=== PATIENT | male | born 1990 | race Caucasian/White ===

== ENCOUNTER 2019-06-04 14:03 | Emergency (ER) | payer SELFPAY ==
[2019-06-04 14:06] VITALS: BP 151/87; RESP 14; TEMP 36.8; O2SAT 98
--- NOTE | 2019-06-04 14:21 | ED.GENADUL_ITS ---
Discharge Plan Disposition Patient Disposition: HOME Condition: Stable Discharge Details Chief Complaint: DentalOral Clinical Impression: Dental abscess Primary Care Provider: Unknown,Unknown ED Provider: Ana Luisa Lewis Home Meds and New Rx's Prescriptions: New penicillin V potassium 500 mg tablet 500 mg PO BID 7 Days Qty: 14 RF: 0 No Action methadone 10 mg Tablet 8 mg DAILY RF: 0 Lantus U-100 Insulin 100 unit/mL Solution 50 unit SUBCUT DAILY RF: 0 insulin lispro [Humalog U-100 Insulin] 100 unit/mL Solution RF: 0 Discharge Instructions Instructions: Dental Abscess (ED) Additional Instructions: Gargle and rinse mouth after every meal with warm salt water or mouthwash. Practice good dental hygiene. You need to follow-up with a dentist within 3 to 5 days if possible. Take medications as directed. Insert ibuprofen. Insert discharge Medical Decision Making 28-year-old male presents with left-sided lower jaw swelling and dental pain. Patient states he noticed left lower molar tenderness approximately 1 week ago and woke up this morning with jaw swelling. He does have a history of dental abscess and has taken antibiotics in the past which has improved symptoms. He denies any trouble swallowing speaking in full sentences, he denies any fever or body aches. Discussed I&D of dental abscess with patient, patient refused at this time. He reports that he only wants antibiotics. Discussed risks and benefits of not doing a incision and drainage. Verbalizes understanding. Strict return instructions given. Prescription given for penicillin 500 mg twice daily x7 days and patient was given a list of dental resources in the community to follow-up with. HPI General Mode of arrival: ambulatory . Date/Time Provider Initiated Documentation: 06/04/19 14:05 . Limitations to Documentation: no limitations . Information obtained by: patient . HPI Narrative: 28-year-old male presents with left-sided lower jaw swelling and dental pain. Patient states he noticed left lower molar tenderness approximately 1 week ago and woke up this morning with jaw swelling. He does have a history of dental abscess and has taken antibiotics in the past which has improved symptoms. He denies any trouble swallowing speaking in full sentences, he denies any fever or body aches. Related Data Home Medications Medication Instructions Recorded Confirmed insulin glargine [Lantus U-100 50 unit SUBCUT DAILY 06/04/19 06/04/19 Insulin] insulin lispro [Humalog U-100 06/04/19 Insulin] methadone 8 mg DAILY 06/04/19 06/04/19 penicillin V potassium 500 mg PO BID 7 Days #14 tab 06/04/19 Previous Rx's Medication Instructions Recorded penicillin V potassium 500 mg PO BID 7 Days #14 tab 06/04/19 Allergies Allergy/AdvReac Type Severity Reaction Status Date / Time No Known Allergies Allergy Unverified 06/04/19 14:08 General Stated Complaint: DentalOral ARI: 4 Review of Systems Narrative: Constitutional: Negative for weight loss, alert and oriented, well groomed, normal body habitus, appears comfortable. HEENT: Denies trauma, headaches, blurry vision, nasal discharge, sore throat, trouble swallowing. Positive poor dentition noted, he does have an abscess noted to his left lower gum area proximally around tooth #18 or 19. Chest: Denies chest pain, palpitations, irregular rhythm, hypertension. Respiratory: Denies Shortness of breath, cough, hemoptysis. GI: Denies abdominal pain, nausea, vomiting, diarrhea, constipation. : Denies dysuria, hematuria, flank pain, rectal bleeding. Neuro: Denies dizziness, blurry vision, weakness, syncope, headache or facial numbness. Hematologic: Denies easy bruising, intolerance to heat or cold, hair loss. [facility] Social History Smoking/Tobacco Use Status: Current every day Tobacco Type: e-cigarettes Alcohol Intake: current Alcohol Intake frequency: holidays/special occasions only Alcohol type: beer Drug use: Occasionally Substance use type: marijuana Do you feel safe at home: Yes Do you feel safe in your relationship?: Yes Exam Narrative Exam Narrative: Constitutional: Allert and oriented x3. Appears stated age. Normal body habitus. Head: Normocephalic, no trauma. Eyes: Pupils PERRLA, Red reflex noted, EOM's intact. Eyelids symmetrical withour lesions, discharge, or swelling. ENT: Bilateral TM's WNL, External ear normal to inspection, no mastoid TTP, swelling, or erythema, Nasal turbinates WNL, no nasal discharge. Posterior pharynx WNL, no exudate. Left lower gingival swelling, erythema and fluctuant area of abscess noted. Patient refusing I&D at this time. Chest: RRR, Normal S1, S2, distal pulses intact. Resp: Lungs clear to auscultation bilaterally, no wheezes, rales, or rhonchi. Musculoskeletal: Normal gait, 5/5 strength to all four extremities. Skin: No suspicious rashes or lesions. Capillary refill ?2 sec. Neurologic: Cranial nerves II-XII intact. Alert and oriented x 3. DTR's intact. Hematologic/Lymphatic: No ecchymosis, no lymphadenopathy. HENMT Teeth and gingiva: abnormal tooth or associated gingiva, caries, gingiva abnormal (Small abscess noted to left lower gingival area with erythema and tendernes) diffusely erythematous and tender; without any purulent discharge and poor dentition Teeth image: 1. Poor dentition, caries noted down to the root Throat: uvula midline Course Vital Signs Vital signs: Vital Signs Temperature 36.8 C 06/04/19 14:06 Respiratory Rate 14 06/04/19 14:06 Blood Pressure 151/87 H 06/04/19 14:06 Pulse Oximetry 98 06/04/19 14:06 Temperature 36.8 C 06/04/19 14:06 Temperature Source Tympanic 06/04/19 14:06 Respiratory Rate 14 06/04/19 14:06 Respiratory Effort Non-Labored 06/04/19 14:07 Blood Pressure 151/87 H 06/04/19 14:06 Blood Pressure Position Sitting 06/04/19 14:06 Pulse Oximetry 98 06/04/19 14:06 Oxygen Delivery Method Room Air 06/04/19 14:06 Oxygen Flow Rate 0 06/04/19 14:06 Pain Level 5 06/04/19 14:06
== END 2019-06-04 14:30 | disposition home or self-care (01) ==
LOC: ER 14:33
PROVIDERS: Emergency Provider Registered Nurse Emergency
DX: R68.84 Jaw pain (principal); K04.7 Periapical abscess without sinus; R22.0 Localized swelling, mass and lump, head; F17.290 Nicotine dependence, other tobacco product, uncomplicated
CPT/HCPCS: 99283

== ENCOUNTER 2022-12-03 13:20 | Emergency (ER) | payer BC, OTHER, SELFPAY ==
[2022-12-03] VITALS (10 sets, daily range): BP systolic 149–162; BP diastolic 99–111; PULSE 72–94; RESP 20; TEMP 36.6; O2SAT 97–99
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
[2022-12-03] MEDS: Acetaminophen 500 MG TAB 1000 MG PO (14:35)
[2022-12-03] MEDS: Ibuprofen 600 MG TAB PO (15:03)
[2022-12-03] MEDS: Lidocaine 5% Patch 1 PATCH TP (15:03)
== END 2022-12-03 15:07 | disposition home or self-care (01) ==
LOC: ER 17:13
PROVIDERS: Emergency Provider Physician Assistant
DX: S13.4XXA Sprain of ligaments of cervical spine, initial encounter (principal); M54.6 Pain in thoracic spine; V89.2XXA Person injured in unspecified motor-vehicle accident, traffic, initial encounter
CPT/HCPCS: 99284; 70450; 71046; 72125; 72128; 99283